=== PATIENT | male | born 1970 | race Caucasian/White ===

== ENCOUNTER 2017-01-28 08:37 | Emergency (ER) | payer OTHER ==
[~2017-01-28] VITALS: Ht 167.6 cm; Wt 68.0 kg
--- NOTE | 2017-01-28 08:43 | ED MVC/FALL/TRAUMA COMPLAINT ---
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 DENIES HEAD STRIKE. FELL ONTO LEFT ARM. DECLINING MEDS IN TRIAGE. Triage Nurses Notes Reviewed? yes Onset: Abrupt Duration: hour(s): (2), constant, continues in ED, getting worse Timing: single episode today Severity: mild, moderate Severity Numbers: 9 Injuries/Fall Location: upper extremity (LEFT WRIST /HAND) Method of Injury: fall Loss of Consciousness: no loss of consciousness No Modifying Factors: none HPI: 46-year-old male with no past medical history presents complaining of pain in the left wrist. 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 Patient states she is approximately 12 feet off the ground before he fell. He reports pain located in the left hand and left wrist. Pain is worse with any type of movement or touching the area. He rates pain as a 10 out of 10. He has not taken any medicine for the pain. Pain does not radiate. He denies hitting his head or any loss of consciousness. He is not does not take blood thinners. He denies any headaches, nausea, vomiting, neck pain, back pain, abdominal pain, shoulder pain or any other injuries. ([facility] CORNELIUS PA-C) Past History Travel History Traveled to [place] past 21 day No Medical History Any Pertinent Medical History? see below for history Surgical History Surgical History: none Psychosocial History What is your primary language Belarusian Tobacco Use: Never used ETOH Use: denies use Illicit Drug Use: denies illicit drug use Family History Hx Contributory? No ([facility] CORNELIUS PA-C) Review of Systems Review of Systems Constitutional: Reports: no symptoms. Eyes: Reports: no symptoms. Ears, Nose, Throat, Mouth: Reports: no symptoms. Respiratory: Reports: no symptoms. Cardiovascular: Reports: no symptoms. Gastrointestinal/Abdominal: Reports: no symptoms. Genitourinary: Reports: no symptoms. Musculoskeletal: Reports: joint pain, joint swelling, muscle pain. Skin: Reports: no symptoms. Neurological/Psychological: Reports: no symptoms. All Other Systems: Reviewed and Negative (ADRYAN BRYANT,UMM) Physical Exam Physical Exam General Appearance: well developed/nourished, alert, awake, moderate distress Head: atraumatic, normal appearance Eyes: Bilateral: normal appearance, PERRL, EOMI. Ears, Nose, Throat, Mouth: hearing grossly normal, moist mucous membrane, Tympanic normal Neck: normal inspection, supple, full range of motion, no midline tenderness Respiratory: normal breath sounds, chest non-tender, no respiratory distress, lungs clear Cardiovascular: regular rate/rhythm, normal peripheral pulses Peripheral Pulses: 2+ radial (R), 2+ radial (L) Gastrointestinal: normal bowel sounds, soft, non-tender, no organomegaly Back: normal inspection, normal range of motion, no vertebral tenderness Extremities: evidence of injury (LEFT WRIST/HAND), limited range of motion (LEFT WRIST/HAND), pain with movement (LEFT WRIST/HAND), tenderness (LEFT WRIST/HAND), no ligament instability, THERE IS PAIN AND SWELLING LOCATED DIFFUSLY AT THE LEFT WRIST AND PALM OF THE LEFT HAND.the left wrist apears displaced posteriorly ROM OF THE LEFT HAND AND WRIST IS REDUCED DUE TO PAIN. NEURO-VASCULAR SUPPLY TO THE LEFT HAND INTACT. NO ELBOW OR SHOULDER PAIN. MOVING ALL EXTREITIES. NO ABDOMINAL PAIN OR CHEST PAIN Neurologic/Psych: no motor/sensory deficits, awake, alert, oriented x 3, normal gait, normal mood/affect Skin: intact, normal color, warm/dry Core Measures ACS in differential dx? No Severe Sepsis Present: No Septic Shock Present: No (ADRYAN BRYANT,[facility]) Progress Differential Diagnosis: ext injury, FRACTURE, SPRAIN, DISLOCATION, CONTUSION Plan of Care: Orders Procedure Date/time Status Durable Medical Equipment 01/28 1117 Active Patient seen and evaluated. He has pain swelling diffusely in the left wrist and proximal left hand. No signs of trauma to the head neck back abdomen chest or lower extremities. Patient is able to walk. He is neurologically intact. Neurovascular supply to the left wrist is intact. Patient will have x-rays of the left wrist left hand. He'll be given ibuprofen 800 ice pack and wrist splint. We'll follow up on x-ray results. 945am: Waiting for radiologist to read x-rays. there is evidence of fracture of the distal radius with displacement. ortho paged. 11:15 AM: X-rays showed a comminuted fracture of the distal radius with dorsal angulation and displacement. Surgical PA Eric Giang was called and performed a hematoma block, just the joint and placed a sugar tong splint. Postreduction x-rays ordered. Patient was given a left shoulder immobilizer. he tolerated procedure well without palpitation. 11:30 AM: Spoke with Dr. Dugan. as long as the postreduction x-ray is in line patient can be discharged home with instructions to follow-up with Dr. Tapia tomorrow. 12:22 PM: Spoke with Joseph Dugan MD after postreduction x-rays. He wants to try to come in and reduce the wrist a little bit better. 1:25 PM: Joseph Dugan MD attempted a second reduction. Patient tolerated well without immediate complication. Neurovascular remains intact. Repeat x-rays ordered. Post 2nd reduction x-rays are improved. Pt will be discharged home with sugar tong splint and shoulder imobilzer. pt was given ibuprofen for pain. RICE. Advised pt to make a follow up appt with Dr Tapia tomorrow. reviewed all resul ;ts of todays visit with pt. pt is non-toxic appearing and agrees with the plan. (ADRYAN BRYANT,[facility]) Diagnostic Imaging: Viewed by Me: Radiology Read. Discussed w/RAD: Radiology Read. Radiology Impression: PATIENT: MARIYA HOPE PRESENT AGE: 46 PATIENT ACCOUNT NO: [id number] : 69 LOCATION: [facility] ORDERING PHYSICIAN: [facility] CORNELIUS PA-C SERVICE DATE: 01/28/17 EXAM TYPE: RAD - XRY- HAND, LEFT; XRY-WRIST COMPLETE-LEFT EXAMINATION: LEFT HAND AND WRIST CLINICAL INFORMATION: Injury COMPARISON: None TECHNIQUE: 4 views of the left wrist. 3 views of the left hand. FINDINGS: Left wrist: There is a comminuted fracture of the left distal radius with dorsal displacement of the distal fragment by approximately one third bone width. There is dorsal angulation and slight impaction of the distal fragment. There is no dislocation at the wrist. No ulnar fracture is identified. Left hand: There is degenerative change in the first carpometacarpal joint. The left fifth finger is flexed at the proximal interphalangeal joint and the middle and distal phalanx of the left fifth finger are not optimally assessed/seen on the views provided. No acute bony or joint space abnormality is seen in the left hand allowing for limitations of the left fifth finger. IMPRESSION: Comminuted displaced fracture of left distal radius with dorsal angulation and slight impaction. No dislocation. No other fracture is identified in the left hand or wrist. The distal portions of the left fifth finger are not optimally assessed as described above. DICTATED BY: ASPEN ZALDIVAR MD DATE/TIME DICTATED:01/28/17953 DIRECTOR OF MUSIC THERAPY: SHARDA DATE/TIME TRANSCRIBED:01/28/17953 CONFIDENTIAL, DO NOT COPY WITHOUT APPROPRIATE AUTHORIZATION. <Electronically signed in Other Vendor System> SIGNED BY: ASPEN ZALDIVAR MD 01/28/17 1003 Comments: PATIENT: MARIYA HOPE PRESENT AGE: 46 PATIENT ACCOUNT NO: [id number] : 69 LOCATION: [facility] ORDERING PHYSICIAN: [facility]MM CORNELIUS PA-C SERVICE DATE: 01/28/17 EXAM TYPE: RAD - XRY-WRIST 2 VIEWS LEFT EXAMINATION: XR WRIST, LEFT CLINICAL INFORMATION: Post reduction COMPARISON: Left wrist films from earlier the same day TECHNIQUE: 2 views of the left wrist. FINDINGS: There is a cast over the wrist. The transverse comminuted fracture of the distal radius is again noted. The degree of dorsal displacement and angulation is minimally decreased compared to prior study. There is no dislocation.. No other change IMPRESSION: Slight decrease in dorsal displacement and angulation of the comminuted fracture of the distal left radius in cast as described. No dislocation. DICTATED BY: ASPEN ZALDIVAR MD DATE/TIME DICTATED:01/28/171206 DIRECTOR OF MUSIC THERAPY:SHARDA DATE/TIME TRANSCRIBED:01/28/171206 PATIENT: MARIYA HOPE PRESENT AGE: 46 PATIENT ACCOUNT NO: [id number] : 68 LOCATION: [facility] ORDERING PHYSICIAN: UMM CORNELIUS PA-C SERVICE DATE: 01/28/17 EXAM TYPE: RAD - XRY-WRIST COMPLETE-LEFT EXAMINATION: XR WRIST, LEFT CLINICAL INFORMATION: Post second reduction left wrist COMPARISON: Earlier same day TECHNIQUE: AP, lateral, and oblique views of the left wrist. FINDINGS: Partially opaque splint immobilizes the distal forearm and wrist in volar flexion. There is an intra-articular impacted distal radial fracture again demonstrated. The degree of dorsal displacement has been significantly reduced. There is some foreshortening of the distal radius relative to the ulna. Bone detail limited IMPRESSION: Fiberglas cast immobilizes the previously demonstrated intra-articular displaced distal radial fracture involving large collection. The alignment is improved. There is some foreshortening. Detail limited DICTATED BY: JONI SANCHEZ MD DATE/TIME DICTATED:01/28/171407 DIRECTOR OF MUSIC THERAPY:SHARDA DATE/TIME TRANSCRIBED:01/28/171407 CONFIDENTIAL, DO NOT COPY WITHOUT APPROPRIATE AUTHORIZATION. ([facility] CORNELIUS PA-C) Departure Departure Disposition: HOME OR SELF CARE Condition: Stable Clinical Impression Primary Impression: Radial fracture Qualifiers: Encounter type: initial encounter Radius location: distal Fracture type: closed Fracture morphology: unspecified fracture morphology Laterality: left Qualified Code: S52.502A - Unspecified fracture of the lower end of left radius, initial encounter for closed fracture Referrals: TIAGO TAPIA MD Additional Instructions: Call Dr. Tapia's office tomorrow to make an appointment. Wear splint until you see the hand specialist. Rest avoid excessive physical activity. Use ibuprofen 800 mg every 8 hours as needed for pain. Monitor symptoms. If you have worsening pain swelling change in coloration of the fingers or any other concerns return to the emergency Department immediately. Departure Forms: Customer Survey General Discharge Information Prescriptions: Current Visit Scripts Ibuprofen 1 TAB PO TID PRN pain #30 TAB ([facility] CORNELIUS PA-C) PA/MOBILE PATROL OFFICER Co-Sign Statement Statement: ED Attending supervision documentation- [] I saw and evaluated the patient. I have also reviewed all the pertinent lab results and diagnostic results. I agree with the findings and the plan of care as documented in the PA's/MOBILE PATROL OFFICER's documentation. [X] I have reviewed the ED Record and agree with the PA's/MOBILE PATROL OFFICER's documentation. [] Additions or exceptions (if any) to the PAs/MOBILE PATROL OFFICER's note and plan are summarized below: [] (RICHELLE ALARCON,ALBERTO Pham) Procedures Splinting Location: left wrist Manual Alignment Performed: Yes Hand-Made Type: orthoglass Splint: sugar-tong Splint Applied By: splint applied by other (Dr Dugan) Pre-Proc Neuro Vasc Exam: normal Post-Proc Neuro Vasc Exam: normal Progress: pt tolertaed well without immeidate complication Joint Reduction Joint Reduction Site: left wrist Reduction Attempts: 2 Pre-Procedure NV Exam: Yes Post-Procedure NV Exam: Yes Post Joint Reduction Film: joint reduced Progress: Hematoma block and joint reduction performed by surgical PA Eric Hahn. Patient tolerated well without immediate consultation. Neurovascular supply intact before and after exam. A second hematoma block was applied for a second joint reduction by Joseph Dugan MD. Patient again tolerated well. Neurovascular supply before and after reduction was intact. (ADRYAN BRYANT,[facility])
--- NOTE | 2017-01-28 10:03 | RADIOLOGY REPORT ---
EXAMINATION: LEFT HAND AND WRIST CLINICAL INFORMATION: Injury COMPARISON: None TECHNIQUE: 4 views of the left wrist. 3 views of the left hand. FINDINGS: Left wrist: There is a comminuted fracture of the left distal radius with dorsal displacement of the distal fragment by approximately one third bone width. There is dorsal angulation and slight impaction of the distal fragment. There is no dislocation at the wrist. No ulnar fracture is identified. Left hand: There is degenerative change in the first carpometacarpal joint. The left fifth finger is flexed at the proximal interphalangeal joint and the middle and distal phalanx of the left fifth finger are not optimally assessed/seen on the views provided. No acute bony or joint space abnormality is seen in the left hand allowing for limitations of the left fifth finger. IMPRESSION: Comminuted displaced fracture of left distal radius with dorsal angulation and slight impaction. No dislocation. No other fracture is identified in the left hand or wrist. The distal portions of the left fifth finger are not optimally assessed as described above.
--- NOTE | 2017-01-28 12:12 | RADIOLOGY REPORT ---
EXAMINATION: XR WRIST, LEFT CLINICAL INFORMATION: Post reduction COMPARISON: Left wrist films from earlier the same day TECHNIQUE: 2 views of the left wrist. FINDINGS: There is a cast over the wrist. The transverse comminuted fracture of the distal radius is again noted. The degree of dorsal displacement and angulation is minimally decreased compared to prior study. There is no dislocation.. No other change IMPRESSION: Slight decrease in dorsal displacement and angulation of the comminuted fracture of the distal left radius in cast as described. No dislocation.
[2017-01-28] MEDS ORDERED: IBUPROFEN800 M1 PO (12:42)
[2017-01-28 14:09] VITALS: BP 127/67
--- NOTE | 2017-01-28 14:13 | RADIOLOGY REPORT ---
EXAMINATION: XR WRIST, LEFT CLINICAL INFORMATION: Post second reduction left wrist COMPARISON: Earlier same day TECHNIQUE: AP, lateral, and oblique views of the left wrist. FINDINGS: Partially opaque splint immobilizes the distal forearm and wrist in volar flexion. There is an intra-articular impacted distal radial fracture again demonstrated. The degree of dorsal displacement has been significantly reduced. There is some foreshortening of the distal radius relative to the ulna. Bone detail limited IMPRESSION: Fiberglas cast immobilizes the previously demonstrated intra-articular displaced distal radial fracture involving large collection. The alignment is improved. There is some foreshortening. Detail limited
== END 2017-01-28 14:10 ==
LOC: ERH 08:37
DX: S52.502A Unspecified fracture of the lower end of left radius, initial encounter for closed fracture (principal); W11.XXXA Fall on and from ladder, initial encounter; Y92.9 Unspecified place or not applicable; Y93.9 Activity, unspecified
CPT/HCPCS: 73100-LT; 73110-LT; 73130-LT